=== PATIENT | male | born 1975 | race Caucasian/White ===

== ENCOUNTER 2017-10-02 14:30 | Outpatient (RCR) | payer BC, SELFPAY ==
--- NOTE | 2017-11-10 14:23 | COCO.CNN ---
Primary Reason for Visit Medical/Dental/Vision (DSMES (Visit date 10/02/17 at [facility] with AVELS) Referral to Care Coordination Referral to Care Coordination: No Referral to Services: Yes Where and Who: [facility]ry - Referral From Referral From: PCP Care Plan - Plan of Care Assessment/Background: Fidel returns for 1-wk f/u DM self-management support with ZEINA and RN,FARSHADE. He presents with the following. ?DIETARY/WT: Additional 2lb wt loss this week. (218 today in office). ?DM MEDS: He has been given the verbal order by PCP to d/c HCTZ and increased Jardiance to 25mg. BP today 102/68. ?MONITORING: Brought his meter with BID test results today. FBS low to mid-200?s HS 270-300mg/dl. ?PHYSICAL ACTIVITY: He has made progress with his walking routine. He is able to achieve a 5-7min walk ~3-5days a week. . INTERVENTION: The following AADE-7 self-care topics are addressed per pt?s interests and today?s assessment of needs. DM MEDS: Medication access, pricing through [facility]. MONITORING: (A1C and BS goals) RISK REDUCTION: (foot care measures and role of podiatry). EXERCISE (benefits, progress, options, interests). PROBLEM SOLVING: (around incorporating exercise goals). HEALTHY EATING: (Wt loss goals, healthy approaches to wt management, benefit of 7% wt reduction). HEALTHY COPING: (Introduced to [facility] Perez today). Plan of Care: Jardiance increase may take 1-2 wks to reach full effect. He agrees to go through P for eye drops, after we called today to pena things out for him. He agrees to podiatry referral as well. He will return in 2wks for f/u support with S (at which time he can track wt progress on graph provided), and visit with PCP, and then CDE support in 1mo. SMPE Self Management Goals: Increase evening walk to 10min and consider walking with dog. * *. Continue to label read for total carbs with goal of under 45gram for meal and under 15g for snack. * *. Check with P if he hasn?t received his eye drops in the next week. Confidence Level (enter 1-10): 7
== END 2017-11-10 14:30 ==
LOC: COCO 14:30
PROVIDERS: PCP Nurse Practitioner; Visit Provider Nurse Practitioner
DX: E11.65 Type 2 diabetes mellitus with hyperglycemia (principal)

== ENCOUNTER 2017-11-28 10:50 | Outpatient (REF) | payer BC, SELFPAY ==
[2017-11-28 14:20] LABS: Anion Gap 13.4 mmol/L (3-11); BUN 22 mg/dL (7-18); CO2 25.6 mmol/L (21.0-32.0); CREATININE 0.65 mg/dL (0.70-1.30); Calcium 9.3 mg/dL (8.5-10.1); Chloride 101 mmol/L (98-107); Glucose 184 mg/dL (70-100); Potassium 4.5 mmol/L (3.5-5.1); Sodium 140 mmol/L (136-145)
== END 2017-11-28 11:10 ==
LOC: NCHCN 10:50
PROVIDERS: PCP Nurse Practitioner; Visit Provider Nurse Practitioner
DX: E11.9 Type 2 diabetes mellitus without complications (principal)
CPT/HCPCS: 80048

== ENCOUNTER 2019-01-08 14:42 | Outpatient (CLI) | payer BC, SELFPAY ==
--- NOTE | 2019-01-08 14:25 | DI.RAD_ITS ---
EXAM: XR SHOULDER RT COMPLETE 2+V INDICATION: SHOULDER PAIN. COMPARISON: No exams were available for comparison TECHNIQUE: 2D digital imaging was performed. FINDINGS: There are degenerative changes present at the acromioclavicular joint and glenohumeral joint. No acu te fracture or dislocation is present. The soft tissues are unremarkable. IMPRESSION: Degenerative arthritis of the right shoulder.
== END 2019-01-08 15:02 ==
PROVIDERS: PCP Nurse Practitioner; Visit Provider Student in an Organized Health Care Education/Training Program
DX: M25.511 Pain in right shoulder (principal); M19.011 Primary osteoarthritis, right shoulder
CPT/HCPCS: 73030

== ENCOUNTER 2019-04-22 15:57 | Emergency (ER) | payer BC, SELFPAY ==
[2019-04-22 16:18] VITALS: BP 129/89; PULSE 103; RESP 18; TEMP 36.7; O2SAT 97
--- NOTE | 2019-04-22 16:31 | ED.GENADUL_ITS ---
Discharge Plan Disposition Patient Disposition: HOME Condition: Good Discharge Details Chief Complaint: Trauma Clinical Impression: Contusion of buttock Primary Care Provider: Brittany Cornejo ED Provider: Odalys Hendrickson Home Meds and New Rx's Prescriptions: Continued timolol 0.25 % drops 1 drp OP BID RF: 0 Lumigan 0.01 % drops 1 drp OP QPM RF: 0 lisinopril 5 mg tablet 5 mg PO DAILY RF: 0 metformin 1,000 mg tablet 1,000 mg PO BID RF: 0 Jardiance 25 mg tablet 25 mg PO DAILY RF: 0 Trulicity 1.5 mg/0.5 mL pen injector 1.5 mg SC QWEEK RF: 0 Blood Pressure Med RF: 0 Discharge Instructions Instructions: Contusion in Adults (ED) Additional Instructions: Encourage rest and ice. Tylenol and/or ibuprofen as needed for discomfort. Gentle stretching and frequent walking. If develop increased pain, difficulty walking altered sensation, weakness, change in bowel or bladder habits or other new/worsening symptoms of care urgently once again. Otherwise, please follow-up with primary care in 1 to 2 weeks if not improving. Referrals: Brittany Cornejo [Primary Care Provider] - Discharge Data Discharge Date/Time-TO BE ENTERED AT DEPARTURE: 04/22/19 17:52 Medical Decision Making Patient is a pleasant 43-year-old male presenting today with chief complaint of right buttock pain. He reports that just prior to arrival he was standing in line [employer] when he slipped relatively still position and landed on the right side of his buttock. Initially, he was unsure with nursing staff if he had lost consciousness, the patient denies this at this time. He reports that he may have mildly struck his head but denies any headache. No loss of consciousness. He states that he immediately had pain in the right buttock but no pain elsewhere. He denies loss of bowel or bladder function. Denies radiating pain. No weakness. Has been ambulatory since the accident. On exam, patient is resting comfortably. Patient indicates right buttock as area of discomfort. He has no ecchymosis, erythema, break in the skin. He has no midline tenderness. He has full ROM of his back. Normal neurologitc exam. Remaining exam without significant abnormality. Patient given Tylenol, Ibuprofen and Lidoderm patch. Reports feeling improved. At this time, I see no need for imaging. He was given return precautions. Feels ready for discharge. He will f/u with his PCP if pain persists over the next 1-2 weeks. All of his questions and concerns were addressed, he is in agreement iwth this plan. HPI General Mode of arrival: ambulatory . Date/Time Provider Initiated Documentation: 04/22/19 16:21 . Limitations to Documentation: no limitations . Information obtained by: patient and RN notes reviewed . History of Present Illness 43 year old M presents to the emergency department with the chief complaint of right sided buttock pain, described as mild, with intensity rated at 3. Quality is described as aching, and is localized to the buttocks and right. Patient reports no radiation. Patient started experiencing this minute(s) and it has been constant. No relieving factors improve symptom(s), No exacerbating factors reported . Patient notes no other symptoms.. Patient did receive the following treatments prior to arrival, none Related Data Home Medications Medication Instructions Recorded Confirmed Blood Pressure Med 05/25/13 03/20/19 bimatoprost 0.01 % eye drops 1 drp OP QPM 01/08/19 04/22/19 dulaglutide 1.5 mg/0.5 mL 1.5 mg SC QWEEK 01/08/19 04/22/19 subcutaneous pen injector empagliflozin 25 mg tablet 25 mg PO DAILY 01/08/19 04/22/19 lisinopril 5 mg tablet 5 mg PO DAILY 01/08/19 04/22/19 metformin 1,000 mg tablet 1,000 mg PO BID 01/08/19 04/22/19 timolol 0.25 % eye drops 1 drp OP BID 01/08/19 04/22/19 Allergies Allergy/AdvReac Type Severity Reaction Status Date / Time Penicillins Allergy Intermediate skin Unverified 04/22/19 16:21 change? General Stated Complaint: Trauma NATE: 3 Review of Systems Constitutional Constitutional: Reports as per HPI, Denies chills, Denies fever(s), Denies headache(s) and Denies weakness ENT Ears, Nose, Mouth, and Throat: Denies headache(s) Cardiovascular Cardiovascular: Reports as per HPI Respiratory Respiratory: Reports as per HPI and Denies cough Musculoskeletal Musculoskeletal: Reports as per HPI and Denies tingling Integumentary/Breasts Skin/Breast: Reports as per HPI, Denies rash and Denies wounds Neurologic Neurologic: Reports as per HPI, Denies headache(s), Denies tingling, Denies paresthesias and Denies weakness [facility] Medical History (Updated 04/22/19 @ 17:27 by JUSTIN Ziegler) Adhesive capsulitis of right shoulder (Acute) Diabetes mellitus type 2 in nonobese (Acute) Hypertension (Chronic) Social History Smoking/Tobacco Use Status: Never Drug use: Never Substance use type: does not use Current gender identity: male Do you feel safe at home: Yes Do you feel safe in your relationship?: Yes Exam Const General: cooperative, healthy appearing, comfortable, no acute distress, well developed and well groomed Nutritional Appearance: average body habitus and well nourished Orientation: alert and awake [facility] Head: normal to inspection, no palpable skull fracture, normocephalic, atraumatic, no Carmona's sign, no hematomas, no lacerations, no occipital foramen tenderness, no palpable skull fracture and no scalp tenderness Ears: hearing grossly normal bilaterally Eyes General: appearance normal, both eyes and all related structures Neck Neck: normal visual inspection, full ROM, no meningeal signs and trachea midline Resp Effort & Inspection: normal respiratory effort, able to speak in complete sentences and no respiratory distress Auscultation: clear to auscultation bilaterally Cardio Rate: regular rate Rhythm: regular rhythm Heart Sounds: S1 normal and S2 normal Back/Spine/Pelvis Back: no CVA tenderness Cervical Spine: normal cervical lordosis, cervical ROM normal, No pain with cervical ROM, No cervical spasm, No cervical spinal tenderness and No step off deformity Thoracic/Lumbar Spine: thoracic and lumbar spine normal to inspection, thoraco- lumbar ROM normal, straight leg raise negative bilaterally, No bend over test abnormal, No pain with thoraco-lumbar ROM, No thoraco-lumbar ROM limited, No thoracic spinal tenderness, No lumbar spinal tenderness and No straight leg raise positive Pelvis: no pain with anterior-posterior compression and no pain with lateral compression Sacroiliac joints: bilaterally nontender Sacrum: no tenderness Coccyx: no tenderness Back/spine/pelvis image: 1. area of discomfort Skin General skin exam: no rashes or lesions noted Lesions: no lesions Rashes: no rashes Trauma: no lacerations or abrasions Neuro General: alert and awake Cognition: normal cognition Speech: speech normal Gait: normal gait Motor: muscle tone normal throughout, strength 5/5 throughout, no movement abnormalities noted and no fasciculations Sensory Exam: no sensory deficits noted (no saddle paresthesias) DTR's: Rt Patellar: 2+, Lt Patellar: 2+, Rt Ankle: 2+ and Lt Ankle: 2+ Psych Appearance: grossly normal and well kempt Mental Status: mental status grossly normal Speech and Movement: speech and movement normal Course Vital Signs Vital signs: Vital Signs Temperature 36.7 C 04/22/19 16:18 Pulse 103 H 04/22/19 16:18 Respiratory Rate 18 04/22/19 16:18 Blood Pressure 129/89 04/22/19 16:18 Pulse Oximetry 97 04/22/19 16:18 Temperature 36.7 C 04/22/19 16:18 Temperature Source Temporal Artery Scan 04/22/19 16:18 Pulse 103 H 04/22/19 16:18 Respiratory Rate 18 04/22/19 16:18 Blood Pressure 129/89 04/22/19 16:18 Blood Pressure Position Supine 04/22/19 16:18 Pulse Oximetry 97 04/22/19 16:18 Oxygen Delivery Method Room Air 04/22/19 16:18 Oxygen Flow Rate 0 04/22/19 16:18 Pain Level 3 04/22/19 16:18
[2019-04-22] MEDS: Acetaminophen 500 MG TAB 1000 MG PO (17:38)
[2019-04-22] MEDS: Ibuprofen 600 MG TAB PO (17:38)
[2019-04-22] MEDS: Lidocaine 5% Patch 1 PATCH TP (17:39)
== END 2019-04-22 17:52 | disposition home or self-care (01) ==
PROVIDERS: Emergency Provider Physician Assistant; PCP Physician Assistant
DX: S30.0XXA Contusion of lower back and pelvis, initial encounter (principal); W19.XXXA Unspecified fall, initial encounter; E11.9 Type 2 diabetes mellitus without complications; Z79.84 Long term (current) use of oral hypoglycemic drugs; I10 Essential (primary) hypertension
CPT/HCPCS: 99282; 99283

== ENCOUNTER 2019-08-02 02:27 | Outpatient (CLI) | payer BC, SELFPAY ==
--- NOTE | 2019-08-02 15:00 | DI.MRI_ITS ---
EXAM: MR UPPER JOINT RT WO CLINICAL HISTORY: R SHOULDER PAIN, SCAPULAR DYSKINESIS, BURSITIS, ADHESIVE CAPSULITIS. TECHNIQUE: Multiplanar multisequence MRI was performed. COMPARISON: Comparison x-ray of the shoulder 01/08/2019 FINDINGS: BONES: There is no fracture or contusion pattern. Note is made of an os acromiale. There are mild de generative changes seen in the humeral head laterally and posteriorly. JOINTS: There are mild hypertrophic changes seen at the acromioclavicular joint. The glenohumeral meliza int is normal. TENDONS: Supraspinatus: Hyperintense signal is seen in the mid supraspinatus tendon. Infraspinatus: Hyperintense signal is seen in the infraspinatus tendon near its insertion onto the gr eater tuberosity. Subscapularis: Mild thickening and hyperintense signal is seen in the subscapularis tendon. Teres Minor: Unremarkable. Biceps and [place]: Unremarkable. MUSCLES: Mild fatty atrophy of the teres minor muscle. The supraspinatus, infraspinatus and subscapu allan muscles show normal signal and size. GLENOID LABRUM: Unremarkable on this noncontrast examination. SOFT TISSUES: No focal fluid collection or soft tissue mass is appreciated. LIGAMENTS: Unremarkable. OTHER: Subacromial and subdeltoid bursae are unremarkable. IMPRESSION: 1. Hyperintense signal seen in the supraspinatus, infraspinatus and subscapularis tendons. These fin dings may represent tendinosis. Partial tear cannot be excluded. 2. Degenerative changes of the acromioclavicular joint with an os acromiale. DATA REPOSITORY:
== END 2019-08-02 02:47 ==
PROVIDERS: PCP Physician Assistant; Visit Provider Student in an Organized Health Care Education/Training Program
DX: M75.01 Adhesive capsulitis of right shoulder (principal); M75.21 Bicipital tendinitis, right shoulder; M19.011 Primary osteoarthritis, right shoulder; M25.511 Pain in right shoulder
CPT/HCPCS: 73221

== ENCOUNTER 2019-08-02 04:02 | Outpatient (CLI) | payer BC, SELFPAY ==
[2019-08-02 16:10] LABS: Anion Gap 6.2 mmol/L (3-11); BUN 21 mg/dL (7-18); CO2 30.8 mmol/L (21.0-32.0); CREATININE 0.91 mg/dL (0.70-1.30); Calcium 9.1 mg/dL (8.5-10.1); Chloride 102 mmol/L (98-107); Glucose 226 mg/dL (74-106); Potassium 4.4 mmol/L (3.5-5.1); Sodium 139 mmol/L (136-145)
== END 2019-08-02 04:22 ==
PROVIDERS: PCP Physician Assistant; Visit Provider Student in an Organized Health Care Education/Training Program
DX: I10 Essential (primary) hypertension (principal); E11.9 Type 2 diabetes mellitus without complications
CPT/HCPCS: 36415; 80048; 83036

== ENCOUNTER 2021-05-04 23:23 | Emergency (ER) | payer BC, SELFPAY ==
[2021-05-04 23:27] VITALS: BP 146/95; PULSE 86; RESP 18; TEMP 36.1; O2SAT 98
--- NOTE | 2021-05-04 23:30 | DI.CT_ITS ---
Exam(s) CT HEAD WO EXAM: CT HEAD WO CLINICAL HISTORY: fall, hit posterior head on ice. TECHNIQUE: Imaging Protocol: Axial computed tomography images with coronal and sagittal reformatted images were created and reviewed COMPARISON: No exams were available for comparison FINDINGS: Ventricles and Extra axial spaces: Normal in size and morphology for the patient's age. Hemorrhage: None. Cerebral parenchyma: Normal. Midline shift: None. Brainstem/Cerebellum: Normal. Calvarium: Normal. Visualized Paranasal sinuses/Mastoids: Clear. Soft Tissues: Unremarkable. IMPRESSION: No acute intracranial process. RADIATION DOSE DELIVERED: 954.58mGy.cm Total DLP DATA REPOSITORY: All CT scans at this facility are submitted to the National Radiology Data Registry (NRDR) Dose Index Registry (DIR) with the [employer] (ACR). RADIATION OPTIMIZATION: All CT scans at this facility use at least one of these dose optimization te chniques: automated exposure control; mA and/or kV adjustment per patient size (includes targeted exa ms where dose is matched to clinical indication); or iterative reconstruction.
--- NOTE | 2021-05-04 23:38 | ED.GENADUL_ITS ---
Discharge Plan Disposition Patient Disposition: HOME Condition: Good Discharge Details Clinical Impression: Concussion Primary Care Provider: Brittany Cornejo ED Provider: Simba Sahu Home Meds and New Rx's Prescriptions: Continued lisinopril 5 mg tablet 5 mg PO DAILY 0RF timolol 0.25 % drops 1 drp OP BID 0RF Lumigan 0.01 % drops 1 drp OP QPM 0RF metformin 1,000 mg tablet 1,000 mg PO BID 0RF Jardiance 25 mg tablet 25 mg PO DAILY 0RF Trulicity 1.5 mg/0.5 mL pen injector 1.5 mg SC QWEEK 0RF Discharge Instructions Instructions: Concussion (ED) Additional Instructions: At this time your CAT scan per the radiologist shows no evidence of bleed or fracture thankfully. If you have any worsening of your symptoms please return immediately. Please be very cognizant of any evidence of worsening headache, vomiting, weakness, numbness, dizziness, decreased concentration, memory problems, sleep disturbance, irritability, fatigue, visual disturbances, judgment problems, depression, or anxiety. These may represent a worsening of your condition or a different, or worse pathology. Please either return immediately for reevaluation or follow up with your primary care provider immediately for continued assessment, reassessment, and management. Please avoid any contact sports, or activities which could cause jarring of your head. A second repeat injury can cause significant and permanent brain damage. After you have complete resolution of any of the symptoms noted above please wait one COMPLETE week until you resume normal gentle physical activity. If you have any return of the symptoms after this, please again wait 1 week after you have complete resolution of your symptoms to return to gentle and normal activities. Referrals: Brittany Cornejo [Primary Care Provider] - Medical Decision Making 45-year-old male presents today for evaluation of fall. Patient was walking on the ice, it is very slippery this evening with the ice and ring, he slipped and hit his posterior occiput. He denies any loss of consciousness. He recalls the entire event. He admits to achiness and soreness on his posterior head. He denies any dizziness, numbness tingling or weakness. He denies any neck pain. No other complaints at this time. He is not on any blood thinners. No other modifying factors. Physical exam demonstrates no midline cervical thoracic or lumbar spine tenderness. No bony tenderness on the arms neck shoulder chest abdomen hips or pelvis. Patient does have mild subjective tenderness around his posterior occiput, but no significant reproducible tenderness there. Mastoid processes are somewhat enlarged bilaterally but appears to be both symmetric and nontender and likely chronic. Suspect concussion his chief diagnosis, however due to the patient's age we'll get a CT scan of the head to make sure there is no evidence of acute intracranial bleed. Patient denies any other significant pain otherwise. Will monitor closely and reassess. 12:16am Radiology/virtual radiology has reviewed CT imaging, CT scan shows no evidence of process. No fracture. Patient feels well. Patient stable for discharge. Diagnosis mild concussion. Discussed red flags which to return. I have extensively reviewed the treatment plan and discharge instructions with the eulogio smith. I have addressed all patient concerns at this time. The patient was made aware of what symptoms to monitor for that would warrant a return to the emergency department. Discussed the plan with the patient, they demonstrate verbal understanding and agreement with our assessment and plan at this time. The documentation in this chart was dictated using [employer] dictation software. Please excuse any dictation errors. FINDINGS: Brain: There is no acute intracranial hemorrhage, mass effect or midline shift. There is no large acute territorial cerebral infarct. Cerebral ventricles: No ventriculomegaly. Paranasal sinuses: Visualized sinuses are unremarkable. No fluid levels. Mastoid air cells: Visualized mastoid air cells are well aerated. Bones/joints: Unremarkable. No acute fracture. Soft tissues: Unremarkable. IMPRESSION: No acute intracranial hemorrhage, mass effect or midline shift. Thank you for allowing us to participate in the care of your patient. Dictated and Authenticated by: Barbara Almanza MD 05/05/2021 12:04 AM Eastern Time ([place] & [place]) HPI General Date/Time Provider Initiated Documentation: 05/04/21 23:32 . HPI Narrative: 45-year-old male presents today for evaluation of fall. Patient was walking on the ice, it is very slippery this evening with the ice and ring, he slipped and hit his posterior occiput. He denies any loss of consciousness. He recalls the entire event. He admits to achiness and soreness on his posterior head. He denies any dizziness, numbness tingling or weakness. He denies any neck pain. No other complaints at this time. He is not on any blood thinners. No other modifying factors. Related Data Home Medications Medication Instructions Recorded Confirmed bimatoprost 0.01 % eye drops 1 drp OP QPM 01/08/19 12/10/19 (Lumigan) dulaglutide 1.5 mg/0.5 mL 1.5 mg SC QWEEK 01/08/19 12/10/19 subcutaneous pen injector (Trulicity) empagliflozin 25 mg tablet 25 mg PO DAILY 01/08/19 12/10/19 (Jardiance) metformin 1,000 mg tablet 1,000 mg PO BID 01/08/19 12/10/19 timolol 0.25 % eye drops 1 drp OP BID 01/08/19 12/10/19 lisinopril 5 mg tablet 5 mg PO DAILY 07/24/19 12/10/19 Allergies Allergy/AdvReac Type Severity Reaction Status Date / Time Penicillins Allergy Intermediate skin Verified 12/10/19 14:08 change? General Stated Complaint: HeadInjury NATE: 4 Review of Systems All systems reviewed & are unremarkable except as noted in HPI and below PFSH All Active Problems (Updated 05/04/21 @ 23:53 by Simba Sahu DO) Concussion (Acute) No-show for appointment (Acute) Scapular dyskinesis (Acute) Contusion of buttock (Acute) Bursitis of right shoulder (Acute) Tendonitis of long head of biceps brachii of right shoulder (Acute) Hypertension (Chronic) Diabetes mellitus type 2 in nonobese (Acute) Adhesive capsulitis of right shoulder (Acute) Social History Smoking/Tobacco Use Status: Never Smoking risk assessment performed?: Yes Alcohol Intake: current Alcohol Intake frequency: holidays/special occasions only Drug use: Never Substance use type: does not use Current gender identity: male Do you feel safe at home: Yes Do you feel safe in your relationship?: Yes Exam Narrative Exam Narrative: 1.Const: Well-nourished, Well-developed, appearing stated age 2.Eyes: PERRL, no conjunctival injection, and symmetrical lids. 3.ENT: Atraumatic external nose and ears. Moist MM. Neck: Symmetric, trachea midline, No thyromegaly. There is no evidence of raccoon eyes, bahena sign, CSF rhinorrhea, mastoid tenderness, cranial crepitus, hemotympanum, exophthalmos, or hyphema. Patient demonstrates intact dentition with no signs of tooth avulsion or fracture, no signs of jaw deformity, no evidence of a LeFort's fracture, with an intact palate, nose and orbital region. There is no evidence of a nasal septal hematoma. No proptosis. Jaw closes symmetrically. Airway is clear. Patient does have large mastoid processes bilaterally, but they do not appear to be overly tender. No hematoma. 4.CVS: +S1/S2, No murmurs or gallops. Peripheral pulses 2+ and equal in all extremities. Brisk capillary refill in all extremities. 5.RESP: Unlabored respiratory effort. Clear to auscultation bilaterally. No wheezes rales or rhonchi 6.GI: Soft, Nontender/Nondistended, No hepatosplenomegaly. No guarding or rebound. 7.MSK: Normocephalic/Atraumatic, Extremities w/o deformity or ttp No cyanosis or clubbing, Normal movement of all extremities no midline tenderness to palpation over the CTLS spine. Normal ROM in flexion, extension, side bend, and rotation. Patient has +5 out of 5 strength in the lower extremities in dorsiflexion and plantarflexion, knee flexion and extension, hip flexion and extension. Normal strength for dorsiflexion and plantar flexion of the great toe bilaterally. There is +2 over 2 dorsalis pedis pulses bilaterally. There is normal sensation to the skin with light touch at the foot, knee, and hip. Normal saddle sensation. Good sensation over the deep sural nerve area bilaterally. Rectal exam deferred. Reflexes are +2 over 4 in the patellar reflex bilaterally. +5 out of 5 strength in the medial, ulnar, radial nerve distribution bilaterally in the hands as well as intact light touch sensation to these dermatomes on the hands 8.Skin: Warm, Dry. No rashes or lesions. 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 Sensation grossly intact, no focal neurologic deficits. 10.Psych: (AAO) x3. Appropriate mood and affect Course Vital Signs Vital signs: Vital Signs Temperature 36.1 C L 05/04/21 23:27 Pulse 86 05/04/21 23:27 Respiratory Rate 18 05/04/21 23:27 Blood Pressure 146/95 H 05/04/21 23:27 Pulse Oximetry 98 05/04/21 23:27 Temperature 36.1 C L 05/04/21 23:27 Temperature Source Tympanic 05/04/21 23:27 Pulse 86 05/04/21 23:27 Respiratory Rate 18 05/04/21 23:27 Respiratory Effort 05/04/21 23:31 Respiratory Depth Normal 05/04/21 23:31 Respiratory Pattern Normal 05/04/21 23:31 Blood Pressure 146/95 H 05/04/21 23:27 Pulse Oximetry 98 05/04/21 23:27 Oxygen Delivery Method Room Air 05/04/21 23:27 Oxygen Flow Rate 0 05/04/21 23:27 Pain Level 3 05/04/21 23:27
--- NOTE | 2021-05-05 00:05 | DI.VRAD_ITS ---
PROCEDURE INFORMATION: Exam: CT Head Without Contrast Exam date and time: 05/04/2021 11:38 PM Age: 45 years old Clinical indication: Other: Fall, hit posterior head on ice TECHNIQUE: Imaging protocol: Computed tomography of the head without contrast. COMPARISON: No relevant prior studies available. FINDINGS: Brain: There is no acute intracranial hemorrhage, mass effect or midline shift. There is no large acute territorial cerebral infarct. Cerebral ventricles: No ventriculomegaly. Paranasal sinuses: Visualized sinuses are unremarkable. No fluid levels. Mastoid air cells: Visualized mastoid air cells are well aerated. Bones/joints: Unremarkable. No acute fracture. Soft tissues: Unremarkable. IMPRESSION: No acute intracranial hemorrhage, mass effect or midline shift. Dictated and Authenticated by: Barbara Morales MD. Ordering:JANET Cottrell MD
== END 2021-05-05 00:15 | disposition home or self-care (01) ==
PROVIDERS: Emergency Provider Student in an Organized Health Care Education/Training Program; PCP Physician Assistant
DX: S06.0X0A Concussion without loss of consciousness, initial encounter (principal); W00.0XXA Fall on same level due to ice and snow, initial encounter
CPT/HCPCS: 99284; 70450; 99283

== ENCOUNTER 2021-11-15 15:01 | Outpatient (REF) | payer BC, SELFPAY ==
[2021-11-15 15:24] LABS: ALT 34 U/L (16-63); AST 17 U/L (15-37); Alkaline Phosphatase 85 U/L (46-116); Anion Gap 5.6 mmol/L (3-11); BUN 19 mg/dL (7-18); Bilirubin, Total 0.6 mg/dL (0.2-1.0); CO2 29.4 mmol/L (21.0-32.0); CREATININE 0.9 mg/dL (0.70-1.30); Calcium 8.8 mg/dL (8.5-10.1); Chloride 103 mmol/L (98-107); Estimated GFR 105.35 (mL/min/1.73m2); Glucose 198 mg/dL (74-106); Potassium 4.4 mmol/L (3.5-5.1); Sodium 138 mmol/L (136-145)
== END 2021-11-15 15:02 | disposition home or self-care (01) ==
LOC: LBN 15:01
PROVIDERS: PCP Physician Assistant; Visit Provider Nurse Practitioner Family
DX: E11.9 Type 2 diabetes mellitus without complications (principal); U07.1 COVID-19
CPT/HCPCS: 80053